=== PATIENT | male | born 1955 | race Two or more races ===

== ENCOUNTER → 2020-03-28 | Outpatient (REF) | payer MEDICARE ==
[2020-03-28 15:21] LABS: HEMATOCRIT 37.2 % (42.0-52.0); HEMOGLOBIN 12.3 g/dl (13.5-17.5); MEAN CORPUSCULAR HEMOGLOBIN 30.7 pg (27.0-33.0); MEAN CORPUSCULAR HGB CONC 33.1 g/dl (32.0-36.5); MEAN CORPUSCULAR VOLUME 92.8 fl (80.0-96.0); PLATELET COUNT, AUTOMATED 232 10^3/uL (150-450); RED BLOOD COUNT 4.01 10^6/uL (4.30-6.10); WHITE BLOOD COUNT 5.1 10^3/uL (4.0-10.0)
[2020-03-28 15:37] LABS: ALT/SGPT 23 U/L (12-78); BILIRUBIN,TOTAL 0.5 MG/DL (0.2-1.0); BLOOD UREA NITROGEN 18 MG/DL (7-18); CALCIUM LEVEL 9.4 MG/DL (8.8-10.2); CARBON DIOXIDE LEVEL 34 MEQ/L (21-32); CHLORIDE LEVEL 103 MEQ/L (98-107); CHOLESTEROL LEVEL 124 MG/DL (<200); CHOLESTEROL RISK RATIO 1.823 (<5); CREATININE FOR GFR 1.08 MG/DL (0.70-1.30); FREE T4 1.09 NG/DL (0.76-1.46); GLOMERULAR FILTRATION RATE > 60.0 (>49); GLUCOSE, FASTING 94 MG/DL (70-100); HDL CHOLESTEROL 68 MG/DL (>40); LDL CHOLESTEROL 45 MG/DL (<100); NON-HDL-C 56 MG/DL; POTASSIUM SERUM 3.4 MEQ/L (3.5-5.1); SODIUM LEVEL 139 MEQ/L (136-145); TOTAL PROTEIN 7.5 GM/DL (6.4-8.2); TRIGLYCERIDES LEVEL 54 MG/DL (<150)
[2020-03-28 15:39] LABS: HEMOGLOBIN A1c 6.5 %
[2020-03-28 17:21] LABS: CREATININE, URINE 44.4 MG/DL; MALB URINE SIEMENS < 5.0 MG/L; MAU/CREAT RATIO 11.2 MCG/MG (0.0-30.0)
== END ==
LOC: M SFHCPLAZ 12:32
PROVIDERS: ATTEND Physician Assistant
DX: I25.10 Atherosclerotic heart disease of native coronary artery without angina pectoris (principal); I11.9 Hypertensive heart disease without heart failure; E11.9 Type 2 diabetes mellitus without complications; E78.5 Hyperlipidemia, unspecified; Z12.5 Encounter for screening for malignant neoplasm of prostate; Z13.29 Encounter for screening for other suspected endocrine disorder
CPT/HCPCS: 36415; 80053; 80061; 82043; 83036; 84439; 84443; 85027; G0103

== ENCOUNTER → 2020-06-22 | Outpatient (CLI) | payer MEDICARE ==
[2020-06-22 18:37] LABS: BLOOD UREA NITROGEN 21 MG/DL (7-18); CARBON DIOXIDE LEVEL 33 MEQ/L (21-32); CHLORIDE LEVEL 104 MEQ/L (98-107); CREATININE FOR GFR 1.16 MG/DL (0.70-1.30); GLOMERULAR FILTRATION RATE > 60.0 (>49); GLUCOSE, FASTING 86 MG/DL (70-100); POTASSIUM SERUM 3.7 MEQ/L (3.5-5.1); SODIUM LEVEL 139 MEQ/L (136-145)
== END ==
LOC: M PLALAB 15:02
PROVIDERS: ATTEND Physician Assistant
DX: E11.9 Type 2 diabetes mellitus without complications (principal)

== ENCOUNTER → 2020-11-20 | Outpatient (REF) | payer MEDICARE ==
[2020-11-20 15:44] LABS: HEMATOCRIT 37.8 % (42.0-52.0); MEAN CORPUSCULAR HEMOGLOBIN 29.6 pg (27.0-33.0); MEAN CORPUSCULAR HGB CONC 31.7 g/dl (32.0-36.5); MEAN CORPUSCULAR VOLUME 93.3 fl (80.0-96.0); PLATELET COUNT, AUTOMATED 231 10^3/uL (150-450); RED BLOOD COUNT 4.05 10^6/uL (4.30-6.10); WHITE BLOOD COUNT 5.2 10^3/uL (4.0-10.0)
[2020-11-20 16:12] LABS: HEMOGLOBIN A1c 6.2 %
[2020-11-20 16:24] LABS: ALT/SGPT 25 U/L (12-78); BLOOD UREA NITROGEN 21 MG/DL (7-18); CALCIUM LEVEL 9.6 MG/DL (8.8-10.2); CARBON DIOXIDE LEVEL 32 MEQ/L (21-32); CHLORIDE LEVEL 104 MEQ/L (98-107); CREATININE FOR GFR 1.05 MG/DL (0.70-1.30); GLOMERULAR FILTRATION RATE > 60.0 (>49); GLUCOSE, FASTING 100 MG/DL (70-100); POTASSIUM SERUM 4.1 MEQ/L (3.5-5.1); SODIUM LEVEL 139 MEQ/L (136-145)
[2020-11-20 16:25] LABS: ALBUMIN 3.9 GM/DL (3.2-5.2); BILIRUBIN,TOTAL 0.6 MG/DL (0.2-1.0); TOTAL PROTEIN 7.4 GM/DL (6.4-8.2)
== END ==
LOC: M PLALAB 13:11
PROVIDERS: ATTEND Physician Assistant
DX: I11.9 Hypertensive heart disease without heart failure (principal); E11.9 Type 2 diabetes mellitus without complications

== ENCOUNTER → 2020-11-28 | Outpatient (REF) | payer MEDICARE ==
[2020-11-28 14:05] LABS: BASO # 0.1 10^3/uL (0.0-0.2); EOS # 0.2 10^3/uL (0.0-0.5); EOS % 3.2 % (0.0-3.0); HEMATOCRIT 38.6 % (42.0-52.0); HEMOGLOBIN 12.3 g/dl (13.5-17.5); LYMPH # 1.3 10^3/uL (1.5-5.0); LYMPH % 21.1 % (24.0-44.0); MEAN CORPUSCULAR HEMOGLOBIN 30.1 pg (27.0-33.0); MEAN CORPUSCULAR HGB CONC 31.9 g/dl (32.0-36.5); MEAN CORPUSCULAR VOLUME 94.4 fl (80.0-96.0); MONO # 0.8 10^3/uL (0.0-0.8); MONO % 12.8 % (0.0-5.0); NEUTROPHILS # 3.8 10^3/uL (1.5-8.5); NEUTROPHILS % 61.6 % (36.0-66.0); PLATELET COUNT, AUTOMATED 245 10^3/uL (150-450); RED BLOOD COUNT 4.09 10^6/uL (4.30-6.10); WHITE BLOOD COUNT 6.2 10^3/uL (4.0-10.0)
[2020-11-28 14:31] LABS: PERCENT SATURATION 26.8 % (19.7-50.0)
[2020-11-28 14:38] LABS: FOLATE 11.2 NG/ML
[2020-11-29 18:07] LABS: FREE LAMBDA LIGHT CHAINS SERUM 16.9 mg/L (5.7-26.3); KAPPA/LAMBDA RATIO SERUM 1.66 (0.26-1.65)
== END ==
LOC: M SFHCPLAZ 10:01
PROVIDERS: ATTEND Physician Assistant
DX: D64.9 Anemia, unspecified (principal)

== ENCOUNTER → 2020-12-28 | Outpatient (REF) | payer MEDICARE ==
[2020-12-28 16:01] LABS: TOTAL PROTEIN 7.3 GM/DL (6.4-8.2)
[2020-12-29 09:05] LABS: ALBUMIN 4.19 GM/DL (3.29-5.55); ALBUMIN % 57.4 % (55.8-66.1); ALPHA-1-GLOBULIN % 3.7 % (2.9-4.9); ALPHA-1-GLOBULINS 0.27 GM/DL (0.17-0.41)
[2020-12-29 09:06] LABS: ALPHA-2-GLOBULINS 0.93 GM/DL (0.42-0.99); ALPHA-2-GLOBULINS % 12.8 % (7.1-11.8); BETA-1-GLOBULINS 0.31 GM/DL (0.28-0.60); BETA-1-GLOBULINS % 4.2 % (4.7-7.2); BETA-2-GLOBULINS 0.32 GM/DL (0.19-0.55); BETA-2-GLOBULINS % 4.4 % (3.2-6.5); GAMMA GLOBULIN % 17.5 % (11.1-18.8); GAMMA GLOBULINS 1.28 GM/DL (0.65-1.58)
== END ==
LOC: M PLALAB 13:58
PROVIDERS: ATTEND Physician Assistant
DX: D64.9 Anemia, unspecified (principal)

== ENCOUNTER → 2021-10-04 | Outpatient (CLI) | payer MEDICARE ==
[2021-10-04 15:26] LABS: BASO # 0.1 10^3/uL (0.0-0.2); BASO % 0.7 % (0.0-1.0); EOS # 0.2 10^3/uL (0.0-0.5); EOS % 2.7 % (0.0-3.0); HEMOGLOBIN 12.4 g/dl (13.5-17.5); LYMPH # 1.1 10^3/uL (1.5-5.0); LYMPH % 15.2 % (24.0-44.0); MEAN CORPUSCULAR HEMOGLOBIN 30.1 pg (27.0-33.0); MEAN CORPUSCULAR HGB CONC 31.8 g/dl (32.0-36.5); MEAN CORPUSCULAR VOLUME 94.7 fl (80.0-96.0); MONO # 0.7 10^3/uL (0.0-0.8); NEUTROPHILS # 5.1 10^3/uL (1.5-8.5); NEUTROPHILS % 71.3 % (36.0-66.0); PLATELET COUNT, AUTOMATED 260 10^3/uL (150-450); RED BLOOD COUNT 4.12 10^6/uL (4.30-6.10); WHITE BLOOD COUNT 7.1 10^3/uL (4.0-10.0)
[2021-10-04 15:46] LABS: HEMOGLOBIN A1c 6.1 %
[2021-10-04 16:02] LABS: ALBUMIN 3.8 GM/DL (3.2-5.2); ALT/SGPT 28 U/L (12-78); BILIRUBIN,TOTAL 0.5 MG/DL (0.2-1.0); BLOOD UREA NITROGEN 25 MG/DL (7-18); CALCIUM LEVEL 9.7 MG/DL (8.8-10.2); CARBON DIOXIDE LEVEL 30 MEQ/L (21-32); CHLORIDE LEVEL 105 MEQ/L (98-107); CHOLESTEROL LEVEL 142 MG/DL (<200); CHOLESTEROL RISK RATIO 1.868 (<5); CREATININE FOR GFR 1.11 MG/DL (0.70-1.30); GLOMERULAR FILTRATION RATE > 60.0 (>49); GLUCOSE, FASTING 86 MG/DL (70-100); HDL CHOLESTEROL 76 MG/DL (>40); LDL CHOLESTEROL 55 MG/DL (<100); NON-HDL-C 66 MG/DL; POTASSIUM SERUM 4.1 MEQ/L (3.5-5.1); SODIUM LEVEL 141 MEQ/L (136-145); TOTAL PROTEIN 7.5 GM/DL (6.4-8.2); TRIGLYCERIDES LEVEL 53 MG/DL (<150)
== END ==
LOC: M PLALAB 12:16
PROVIDERS: ATTEND Physician Assistant
DX: E78.5 Hyperlipidemia, unspecified (principal); Z79.899 Other long term (current) drug therapy

== ENCOUNTER → 2022-05-29 | Outpatient (CLI) | payer MEDICARE ==
[2022-05-29 17:17] LABS: BASO # 0.1 10^3/uL (0.0-0.2); EOS # 0.2 10^3/uL (0.0-0.5); HEMATOCRIT 39.9 % (42.0-52.0); HEMOGLOBIN 12.7 g/dl (13.5-17.5); LYMPH # 1.2 10^3/uL (1.5-5.0); LYMPH % 19.5 % (24.0-44.0); MEAN CORPUSCULAR HEMOGLOBIN 30.8 pg (27.0-33.0); MEAN CORPUSCULAR HGB CONC 31.8 g/dl (32.0-36.5); MEAN CORPUSCULAR VOLUME 96.6 fl (80.0-96.0); MONO # 0.7 10^3/uL (0.0-0.8); NEUTROPHILS % 65.3 % (36.0-66.0); PLATELET COUNT, AUTOMATED 233 10^3/uL (150-450); RED BLOOD COUNT 4.13 10^6/uL (4.30-6.10); WHITE BLOOD COUNT 6.1 10^3/uL (4.0-10.0)
[2022-05-29 19:46] LABS: ALBUMIN 3.7 GM/DL (3.2-5.2); ALT/SGPT 24 U/L (12-78); BILIRUBIN,TOTAL 0.4 MG/DL (0.2-1.0); BLOOD UREA NITROGEN 22 MG/DL (7-18); CALCIUM LEVEL 9.4 MG/DL (8.8-10.2); CARBON DIOXIDE LEVEL 32 MEQ/L (21-32); CHLORIDE LEVEL 104 MEQ/L (98-107); CHOLESTEROL LEVEL 126 MG/DL (<200); CHOLESTEROL RISK RATIO 1.702 (<5); CREATININE FOR GFR 1.12 MG/DL (0.70-1.30); GLOMERULAR FILTRATION RATE > 60.0 (>49); GLUCOSE, FASTING 93 MG/DL (70-100); HDL CHOLESTEROL 74 MG/DL (>40); LDL CHOLESTEROL 37 MG/DL (<100); NON-HDL-C 52 MG/DL; POTASSIUM SERUM 3.6 MEQ/L (3.5-5.1); SODIUM LEVEL 141 MEQ/L (136-145); TOTAL PROTEIN 7.4 GM/DL (6.4-8.2); TRIGLYCERIDES LEVEL 76 MG/DL (<150)
[2022-05-29 22:58] LABS: HEMOGLOBIN A1c 6.2 %
== END ==
LOC: M PLALAB 15:42
PROVIDERS: ATTEND Nurse Practitioner Family
DX: E78.5 Hyperlipidemia, unspecified (principal); E11.9 Type 2 diabetes mellitus without complications

== ENCOUNTER → 2022-10-07 | Outpatient (CLI) | payer MEDICARE ==
[2022-10-07 17:47] LABS: BASO # 0.1 10^3/uL (0.0-0.2); BASO % 0.8 % (0.0-1.0); EOS # 0.4 10^3/uL (0.0-0.5); EOS % 4.2 % (0.0-3.0); HEMATOCRIT 43.3 % (42.0-52.0); HEMOGLOBIN 13.6 g/dl (13.5-17.5); LYMPH # 1.5 10^3/uL (1.5-5.0); LYMPH % 17.5 % (24.0-44.0); MEAN CORPUSCULAR HEMOGLOBIN 30.4 pg (27.0-33.0); MEAN CORPUSCULAR HGB CONC 31.4 g/dl (32.0-36.5); MEAN CORPUSCULAR VOLUME 96.7 fl (80.0-96.0); MONO % 11.1 % (2.0-8.0); NEUTROPHILS # 5.6 10^3/uL (1.5-8.5); NEUTROPHILS % 66.2 % (36.0-66.0); PLATELET COUNT, AUTOMATED 255 10^3/uL (150-450); RED BLOOD COUNT 4.48 10^6/uL (4.30-6.10); WHITE BLOOD COUNT 8.5 10^3/uL (4.0-10.0)
[2022-10-07 17:59] LABS: ALBUMIN 4.2 G/DL (3.2-5.2); ALKALINE PHOSPHATASE 87 U/L (46-116); ALT/SGPT 27 U/L (7.0-40); AST/SGOT 22 U/L (<34); BILIRUBIN,TOTAL 0.6 MG/DL (0.3-1.2); BLOOD UREA NITROGEN 23 MG/DL (9-23); CALCIUM LEVEL 9.8 MG/DL (8.3-10.6); CARBON DIOXIDE LEVEL 31 MMOL/L (20-31); CHLORIDE LEVEL 101 MMOL/L (98-107); CHOLESTEROL LEVEL 142 MG/DL (<200); CHOLESTEROL RISK RATIO 1.81 (<5); CREATININE FOR GFR 1.07 MG/DL (0.70-1.30); GLOMERULAR FILTRATION RATE > 60.0 (>49); GLUCOSE, FASTING 94 MG/DL (74-106); HDL CHOLESTEROL 78.2 MG/DL (>40); NON-HDL-C 64 MG/DL; POTASSIUM SERUM 3.8 MMOL/L (3.5-5.1); SODIUM LEVEL 141 MMOL/L (136-145); TOTAL PROTEIN 7.6 G/DL (5.7-8.2); TRIGLYCERIDES LEVEL 74 MG/DL (<150)
[2022-10-07 18:01] LABS: TOTAL 25(OH) VITAMIN D 25.6 NG/ML (20.0-100.0)
== END ==
LOC: M PLALAB 15:55
PROVIDERS: ATTEND Nurse Practitioner Family
DX: E11.9 Type 2 diabetes mellitus without complications (principal); I10 Essential (primary) hypertension; E78.5 Hyperlipidemia, unspecified; E55.9 Vitamin D deficiency, unspecified; Z79.899 Other long term (current) drug therapy

== ENCOUNTER → 2023-02-27 | Outpatient (CLI) | payer MEDICARE ==
[2023-02-27 16:33] LABS: BASO # 0.1 10^3/uL (0.0-0.2); BASO % 1.1 % (0.0-1.0); EOS # 0.3 10^3/uL (0.0-0.5); EOS % 5.7 % (0.0-3.0); HEMATOCRIT 38.7 % (42.0-52.0); HEMOGLOBIN 12.3 g/dl (13.5-17.5); LYMPH # 1.2 10^3/uL (1.5-5.0); LYMPH % 24.5 % (24.0-44.0); MEAN CORPUSCULAR HEMOGLOBIN 30.6 pg (27.0-33.0); MEAN CORPUSCULAR HGB CONC 31.8 g/dl (32.0-36.5); MEAN CORPUSCULAR VOLUME 96.3 fl (80.0-96.0); MONO # 0.7 10^3/uL (0.0-0.8); MONO % 14.5 % (2.0-8.0); NEUTROPHILS # 2.5 10^3/uL (1.5-8.5); PLATELET COUNT, AUTOMATED 215 10^3/uL (150-450); RED BLOOD COUNT 4.02 10^6/uL (4.30-6.10); WHITE BLOOD COUNT 4.7 10^3/uL (4.0-10.0)
[2023-02-27 17:01] LABS: CREATININE, URINE 63.7 MG/DL; MALB URINE SIEMENS < 3.0 MG/L; MAU/CREAT RATIO 4.7 MCG/MG (0.0-30.0)
[2023-02-27 17:06] LABS: ALKALINE PHOSPHATASE 81 U/L (46-116); ALT/SGPT 17 U/L (7.0-40); AST/SGOT 15 U/L (<34); BILIRUBIN,TOTAL 0.5 MG/DL (0.3-1.2); BLOOD UREA NITROGEN 17 MG/DL (9-23); CALCIUM LEVEL 9.6 MG/DL (8.3-10.6); CARBON DIOXIDE LEVEL 32 MMOL/L (20-31); CHLORIDE LEVEL 104 MMOL/L (98-107); CHOLESTEROL LEVEL 126 MG/DL (<200); CHOLESTEROL RISK RATIO 1.92 (<5); CREATININE FOR GFR 1.03 MG/DL (0.70-1.30); FREE T4 1.01 NG/DL (0.89-1.76); GLOMERULAR FILTRATION RATE > 60.0 (>49); GLUCOSE, FASTING 87 MG/DL (74-106); HDL CHOLESTEROL 65.3 MG/DL (>40); LDL CHOLESTEROL 48.7 MG/DL (<100); NON-HDL-C 60.7 MG/DL; POTASSIUM SERUM 3.9 MMOL/L (3.5-5.1); SODIUM LEVEL 139 MMOL/L (136-145); TOTAL PROTEIN 7.2 G/DL (5.7-8.2); TRIGLYCERIDES LEVEL 60 MG/DL (<150)
[2023-02-27 17:07] LABS: FERRITIN 80.4 NG/ML (10.5-307.3); THYROID STIMULATING HORMONE 4.976 uIU/ML (0.55-4.78); TOTAL 25(OH) VITAMIN D 26.9 NG/ML (20.0-100.0)
[2023-02-27 17:09] LABS: VITAMIN B12 LEVEL 378 PG/ML (211-911)
[2023-02-27 17:31] LABS: HEMOGLOBIN A1c 6.3 % (4.0-6.0)
== END ==
LOC: M PLALAB 13:51
PROVIDERS: ATTEND Nurse Practitioner Family
DX: E78.5 Hyperlipidemia, unspecified (principal); E11.9 Type 2 diabetes mellitus without complications; E55.9 Vitamin D deficiency, unspecified; D64.9 Anemia, unspecified

== ENCOUNTER 2023-06-02 23:22 | Emergency (ER) | payer MEDICARE ==
[~2023-06-02] VITALS: Ht 182.9 cm; Wt 104.5 kg
[2023-06-02 23:50] LABS: BASO # 0.1 10^3/uL (0.0-0.2); BASO % 0.5 % (0.0-1.0); EOS # 0.2 10^3/uL (0.0-0.5); EOS % 1.7 % (0.0-3.0); HEMATOCRIT 30.6 % (42.0-52.0); HEMOGLOBIN 9.9 g/dl (13.5-17.5); LYMPH # 1.4 10^3/uL (1.5-5.0); LYMPH % 12.6 % (24.0-44.0); MEAN CORPUSCULAR HEMOGLOBIN 30.6 pg (27.0-33.0); MEAN CORPUSCULAR HGB CONC 32.4 g/dl (32.0-36.5); MEAN CORPUSCULAR VOLUME 94.4 fl (80.0-96.0); MONO # 0.9 10^3/uL (0.0-0.8); MONO % 8.5 % (2.0-8.0); NEUTROPHILS # 8.4 10^3/uL (1.5-8.5); NEUTROPHILS % 76.3 % (36.0-66.0); PLATELET COUNT, AUTOMATED 216 10^3/uL (150-450); RED BLOOD COUNT 3.24 10^6/uL (4.30-6.10)
[2023-06-02] MEDS ORDERED: NS 1,000 ML IV ONE (23:55)
[2023-06-03 00:12] LABS: BLOOD UREA NITROGEN 28 MG/DL (9-23); CALCIUM LEVEL 8.5 MG/DL (8.3-10.6); CARBON DIOXIDE LEVEL 26 MMOL/L (20-31); CHLORIDE LEVEL 107 MMOL/L (98-107); CREATININE FOR GFR 1.22 MG/DL (0.70-1.30); GLOMERULAR FILTRATION RATE > 60.0 (>42); GLUCOSE, FASTING 200 MG/DL (74-106); POTASSIUM SERUM 3.7 MMOL/L (3.5-5.1); SODIUM LEVEL 142 MMOL/L (136-145)
[2023-06-03 00:16] LABS: INR 1.01; PROTHROMBIN TIME 13.5 SECONDS (12.5-14.5)
[2023-06-03 00:17] LABS: PARTIAL THROMBOPLASTIN TIME 26.3 SECONDS (24.8-34.2)
[2023-06-03] MEDS ORDERED: NS 3,140 ML in IV 1 EA IV ONE (01:00)
[2023-06-03 04:04] LABS: BASO % 0.4 % (0.0-1.0); EOS % 0.2 % (0.0-3.0); HEMATOCRIT 27.9 % (42.0-52.0); LYMPH # 0.7 10^3/uL (1.5-5.0); LYMPH % 7.7 % (24.0-44.0); MEAN CORPUSCULAR HEMOGLOBIN 30.8 pg (27.0-33.0); MEAN CORPUSCULAR HGB CONC 32.3 g/dl (32.0-36.5); MEAN CORPUSCULAR VOLUME 95.5 fl (80.0-96.0); MONO # 0.8 10^3/uL (0.0-0.8); MONO % 8.1 % (2.0-8.0); NEUTROPHILS % 83.2 % (36.0-66.0); PLATELET COUNT, AUTOMATED 178 10^3/uL (150-450); RED BLOOD COUNT 2.92 10^6/uL (4.30-6.10); WHITE BLOOD COUNT 9.7 10^3/uL (4.0-10.0)
[2023-06-03 09:14] VITALS: BP 107/56; TEMP 99.1; O2SAT 100
== END 2023-06-03 08:58 | disposition home or self-care (01) ==
LOC: EDBD 23:22 → M ED 23:22
DX: I83.811 Varicose veins of right lower extremity with pain (principal); I25.10 Atherosclerotic heart disease of native coronary artery without angina pectoris; I12.9 Hypertensive chronic kidney disease with stage 1 through stage 4 chronic kidney disease, or unspecified chronic kidney disease; N18.9 Chronic kidney disease, unspecified

== ENCOUNTER → 2023-06-17 | Outpatient (CLI) | payer MEDICARE ==
[~2023-06-17] MED LIST: ASPI-161 PO; CETI-25 PO; CLOP75TA2; CLOP75TA2 PO; LOSA100T5; LOSA100T5 PO; METF-838; METF-838 PO; MUPI2OI; MUPI2OI EXT; ROSU40TA4; ROSU40TA4 PO
[2023-06-17 14:05] LABS: BASO # 0.1 10^3/uL (0.0-0.2); EOS # 0.3 10^3/uL (0.0-0.5); EOS % 5.2 % (0.0-3.0); HEMATOCRIT 28.2 % (42.0-52.0); HEMOGLOBIN 8.8 g/dl (13.5-17.5); LYMPH # 1.8 10^3/uL (1.5-5.0); LYMPH % 30.1 % (24.0-44.0); MEAN CORPUSCULAR HEMOGLOBIN 30.9 pg (27.0-33.0); MEAN CORPUSCULAR HGB CONC 31.2 g/dl (32.0-36.5); MEAN CORPUSCULAR VOLUME 98.9 fl (80.0-96.0); MONO # 0.8 10^3/uL (0.0-0.8); NEUTROPHILS % 50.5 % (36.0-66.0); PLATELET COUNT, AUTOMATED 297 10^3/uL (150-450); RED BLOOD COUNT 2.85 10^6/uL (4.30-6.10)
== END ==
LOC: M PLALAB 09:03
PROVIDERS: ATTEND Nurse Practitioner Family
DX: I83.891 Varicose veins of right lower extremity with other complications (principal)

== ENCOUNTER 2023-06-18 02:40 | Inpatient (IN) | payer MEDICARE ==
[~2023-06-18] VITALS: Ht 182.9 cm; Wt 108.6 kg
[2023-06-18] VITALS (16 sets, daily range): BP systolic 100–133; BP diastolic 51–64; TEMP 98.4–99.3; O2SAT 95–100
[2023-06-18] MEDS ORDERED: METF-838 (03:00)
[2023-06-18] MEDS ORDERED: CLOP75TA2 (03:00)
[2023-06-18] MEDS ORDERED: ROSU40TA4 (03:00)
[2023-06-18] MEDS ORDERED: MUPI2OI (03:00)
[2023-06-18] MEDS ORDERED: LOSA100T5 (03:00)
[2023-06-18] MEDS ORDERED: BOOSTRIX VACCINE (TETANUS/DIPHTH/ACEL. PERTUSSIS) 0.5ML SYR IM.IMMUN ONE (03:20)
[2023-06-18] MEDS ORDERED: LIDOCAINE W/EPINEPHRINE 1% 20ML VIAL SC ONE (03:20)
[2023-06-18 03:30] LABS: BASO # 0.1 10^3/uL (0.0-0.2); EOS # 0.3 10^3/uL (0.0-0.5); EOS % 4.9 % (0.0-3.0); HEMATOCRIT 23.2 % (42.0-52.0); HEMOGLOBIN 7.4 g/dl (13.5-17.5); LYMPH # 1.4 10^3/uL (1.5-5.0); LYMPH % 27.5 % (24.0-44.0); MEAN CORPUSCULAR HEMOGLOBIN 31.2 pg (27.0-33.0); MEAN CORPUSCULAR HGB CONC 31.9 g/dl (32.0-36.5); MEAN CORPUSCULAR VOLUME 97.9 fl (80.0-96.0); MONO # 0.6 10^3/uL (0.0-0.8); MONO % 11.3 % (2.0-8.0); NEUTROPHILS # 2.8 10^3/uL (1.5-8.5); NEUTROPHILS % 55.1 % (36.0-66.0); PLATELET COUNT, AUTOMATED 250 10^3/uL (150-450); RED BLOOD COUNT 2.37 10^6/uL (4.30-6.10); WHITE BLOOD COUNT 5.1 10^3/uL (4.0-10.0)
[2023-06-18 03:35] LABS: ETHYL ALCOHOL (ETHANOL) < 0.003 % (0.000-0.010)
[2023-06-18 03:36] LABS: BLOOD UREA NITROGEN 26 MG/DL (9-23); CALCIUM LEVEL 8.1 MG/DL (8.3-10.6); CARBON DIOXIDE LEVEL 27 MMOL/L (20-31); CHLORIDE LEVEL 106 MMOL/L (98-107); CK-MB VALUE MASS < 1.0 NG/ML (<3.6); CPK CREATINE PHOSPHOKINASE 80 U/L (46-171); CREATININE FOR GFR 1.07 MG/DL (0.70-1.30); GLOMERULAR FILTRATION RATE > 60.0 (>42); GLUCOSE, FASTING 178 MG/DL (74-106); INR 1.1; MAGNESIUM LEVEL 1.6 MG/DL (1.8-2.4); MB/CK RELATIVE INDEX 1.25 (< OR =4); POTASSIUM SERUM 3.7 MMOL/L (3.5-5.1); PROTHROMBIN TIME 13.9 SECONDS (12.5-14.5); SODIUM LEVEL 143 MMOL/L (136-145)
[2023-06-18 03:37] LABS: PARTIAL THROMBOPLASTIN TIME 28.8 SECONDS (24.8-34.2)
[2023-06-18 03:38] LABS: THYROID STIMULATING HORMONE 6.584 uIU/ML (0.55-4.78)
[2023-06-18] MEDS ORDERED: MAG SULF 1GM/100ML (MAG RUN) 1 GM in IV 1 EA IV ONE (04:10)
[2023-06-18 04:54] LABS: CK-MB VALUE MASS < 1.0 NG/ML (<3.6)
[2023-06-18 04:55] LABS: CPK CREATINE PHOSPHOKINASE 82 U/L (46-171); MB/CK RELATIVE INDEX 1.21 (< OR =4)
[2023-06-18 05:02] LABS: RSV AMPLIFICATION NEGATIVE (NEGATIVE)
[2023-06-18] MEDS ORDERED: CLOP75TA2 PO (06:40)
[2023-06-18] MEDS ORDERED: LOSA100T5 PO (06:40)
[2023-06-18] MEDS ORDERED: ASPI-161 PO (06:41)
[2023-06-18] MEDS ORDERED: METF-838 PO (06:41)
[2023-06-18] MEDS ORDERED: MUPI2OI EXT (06:41)
[2023-06-18] MEDS ORDERED: ROSU40TA4 PO (06:41)
[2023-06-18] MEDS ORDERED: CETI-25 PO (06:41)
[2023-06-18] MEDS ORDERED: GLUCOSE 4GM CHEW TABLET PO PRN (06:45)
[2023-06-18] MEDS ORDERED: DEXTROSE 50% 50ML SYRINGE IV PRN (06:45)
[2023-06-18] MEDS ORDERED: GLUCAGON INJ 1MG VIAL SC PRN (06:45)
[2023-06-18] MEDS ORDERED: HOME MED LIST COMPLETE! XX SCH (06:45)
[2023-06-18] MEDS ORDERED: ACETAMINOPHEN TAB 650MG DOSE (2X325MG) PO PRN (06:45)
[2023-06-18] MEDS ORDERED: NS 500 ML IV ONE (07:05)
[2023-06-18 07:25] LABS: FREE T4 1.01 NG/DL (0.89-1.76)
[2023-06-18 07:47] LABS: HEMATOCRIT 22.5 % (42.0-52.0); HEMOGLOBIN 7.2 g/dl (13.5-17.5)
[2023-06-18] MEDS ORDERED: CLOPIDOGREL 75 MG TAB PO SCH (09:00)
[2023-06-18] MEDS: INSULIN LISPRO (NovoLOG) PER UNIT SC SCH ×4 (10:20→20:43)
[2023-06-18] MEDS: LOSARTAN 50MG TABLET PO SCH (12:13)
[2023-06-18] MEDS: ASPIRIN 81MG ENTERIC TABLET PO SCH (12:35)
[2023-06-18 16:42] LABS: HEMATOCRIT 22.1 % (42.0-52.0)
[2023-06-19] VITALS (9 sets, daily range): BP systolic 103–140; BP diastolic 54–67; TEMP 97.7–99.3; O2SAT 96–100
[2023-06-19 04:58] LABS: HEMATOCRIT 24.5 % (42.0-52.0); HEMOGLOBIN 8.1 g/dl (13.5-17.5); MEAN CORPUSCULAR HEMOGLOBIN 30.6 pg (27.0-33.0); MEAN CORPUSCULAR HGB CONC 33.1 g/dl (32.0-36.5); MEAN CORPUSCULAR VOLUME 92.5 fl (80.0-96.0); PLATELET COUNT, AUTOMATED 205 10^3/uL (150-450); RED BLOOD COUNT 2.65 10^6/uL (4.30-6.10); WHITE BLOOD COUNT 7.5 10^3/uL (4.0-10.0)
[2023-06-19 05:23] LABS: BLOOD UREA NITROGEN 23 MG/DL (9-23); CALCIUM LEVEL 8.4 MG/DL (8.3-10.6); CARBON DIOXIDE LEVEL 27 MMOL/L (20-31); CHLORIDE LEVEL 110 MMOL/L (98-107); CREATININE FOR GFR 0.98 MG/DL (0.70-1.30); GLOMERULAR FILTRATION RATE > 60.0 (>42); GLUCOSE, FASTING 120 MG/DL (74-106); POTASSIUM SERUM 3.6 MMOL/L (3.5-5.1); SODIUM LEVEL 144 MMOL/L (136-145)
[2023-06-19 07:55] LABS: LDH LACTATE DEHYDROGENASE 121 U/L (120-246); MAGNESIUM LEVEL 1.8 MG/DL (1.8-2.4)
[2023-06-19 07:56] LABS: IRON (FE) 196 UG/DL (65-175); PERCENT SATURATION 79.4 % (19.7-50.0); TOTAL IRON BINDING CAPACITY 247 UG/DL (250-425)
[2023-06-19 07:58] LABS: FOLATE 9.6 NG/ML (>5.4)
[2023-06-19 07:59] LABS: FERRITIN 28.5 NG/ML (10.5-307.3); THYROID STIMULATING HORMONE 2.302 uIU/ML (0.55-4.78); VITAMIN B12 LEVEL 246 PG/ML (211-911)
[2023-06-19] MEDS: INSULIN LISPRO (NovoLOG) PER UNIT SC SCH ×4 (08:53→20:00)
[2023-06-19] MEDS: LOSARTAN 50MG TABLET PO SCH (08:54)
[2023-06-19] MEDS: ASPIRIN 81MG ENTERIC TABLET PO SCH (09:08)
[2023-06-19 14:12] LABS: HEMATOCRIT 26.3 % (42.0-52.0); HEMOGLOBIN 8.7 g/dl (13.5-17.5)
[2023-06-19 22:06] LABS: HEMATOCRIT 26.8 % (42.0-52.0); HEMOGLOBIN 8.8 g/dl (13.5-17.5)
[2023-06-20 04:00] VITALS: BP 147/65; TEMP 97.8; O2SAT 99
[2023-06-20 05:02] LABS: HEMATOCRIT 24.3 % (42.0-52.0); MEAN CORPUSCULAR HEMOGLOBIN 31.1 pg (27.0-33.0); MEAN CORPUSCULAR HGB CONC 32.9 g/dl (32.0-36.5); MEAN CORPUSCULAR VOLUME 94.6 fl (80.0-96.0); PLATELET COUNT, AUTOMATED 194 10^3/uL (150-450); RED BLOOD COUNT 2.57 10^6/uL (4.30-6.10); WHITE BLOOD COUNT 6.2 10^3/uL (4.0-10.0)
[2023-06-20 05:27] LABS: BLOOD UREA NITROGEN 21 MG/DL (9-23); CALCIUM LEVEL 8.2 MG/DL (8.3-10.6); CARBON DIOXIDE LEVEL 28 MMOL/L (20-31); CHLORIDE LEVEL 109 MMOL/L (98-107); CREATININE FOR GFR 0.94 MG/DL (0.70-1.30); GLOMERULAR FILTRATION RATE > 60.0 (>42); GLUCOSE, FASTING 109 MG/DL (74-106); POTASSIUM SERUM 3.5 MMOL/L (3.5-5.1); SODIUM LEVEL 142 MMOL/L (136-145)
[2023-06-20 08:00] VITALS: BP 128/60; TEMP 97.5; O2SAT 99
[2023-06-20] MEDS: ASPIRIN 81MG ENTERIC TABLET PO SCH (09:31)
[2023-06-20] MEDS: LOSARTAN 50MG TABLET PO SCH (09:32)
[2023-06-20] MEDS: INSULIN LISPRO (NovoLOG) PER UNIT SC SCH ×4 (09:36→20:19)
[2023-06-20 12:00] VITALS: BP 109/58; TEMP 97.5; O2SAT 98
[2023-06-20 16:00] VITALS: BP 106/54; TEMP 98.1; O2SAT 97
[2023-06-20 18:24] LABS: HEMATOCRIT 27.4 % (42.0-52.0); HEMOGLOBIN 8.8 g/dl (13.5-17.5)
[2023-06-20 20:00] VITALS: BP 110/56; TEMP 98.3; O2SAT 100
[2023-06-21] VITALS: BP 131/62; TEMP 98.3; O2SAT 99
[2023-06-21 04:00] VITALS: BP 134/61; TEMP 97.8; O2SAT 98
[2023-06-21 04:50] LABS: HEMATOCRIT 25.7 % (42.0-52.0); HEMOGLOBIN 8.3 g/dl (13.5-17.5); MEAN CORPUSCULAR HEMOGLOBIN 30.7 pg (27.0-33.0); MEAN CORPUSCULAR HGB CONC 32.3 g/dl (32.0-36.5); MEAN CORPUSCULAR VOLUME 95.2 fl (80.0-96.0); PLATELET COUNT, AUTOMATED 206 10^3/uL (150-450); WHITE BLOOD COUNT 5.5 10^3/uL (4.0-10.0)
[2023-06-21 05:12] LABS: BLOOD UREA NITROGEN 16 MG/DL (9-23); CALCIUM LEVEL 8.8 MG/DL (8.3-10.6); CARBON DIOXIDE LEVEL 29 MMOL/L (20-31); CHLORIDE LEVEL 107 MMOL/L (98-107); CREATININE FOR GFR 0.93 MG/DL (0.70-1.30); GLOMERULAR FILTRATION RATE > 60.0 (>42); GLUCOSE, FASTING 99 MG/DL (74-106); POTASSIUM SERUM 3.7 MMOL/L (3.5-5.1); SODIUM LEVEL 142 MMOL/L (136-145)
[2023-06-21] MEDS: INSULIN LISPRO (NovoLOG) PER UNIT SC SCH ×4 (07:30→19:47)
[2023-06-21 08:00] VITALS: BP 133/60; TEMP 97.8; O2SAT 99
[2023-06-21] MEDS: ASPIRIN 81MG ENTERIC TABLET PO SCH (08:26)
[2023-06-21] MEDS: LOSARTAN 50MG TABLET PO SCH (09:00)
[2023-06-21 12:00] VITALS: BP 122/57; TEMP 97.8; O2SAT 99
[2023-06-21] MEDS: PANTOPRAZOLE 40MG TAB (PROTONIX) PO SCH (13:14)
[2023-06-21 16:02] VITALS: BP 136/68; TEMP 97.7; O2SAT 100
[2023-06-21 20:00] VITALS: BP 127/62; TEMP 98.4; O2SAT 100
[2023-06-22 06:00] VITALS: BP 122/60; TEMP 98.4; O2SAT 97
[2023-06-22] MEDS: INSULIN LISPRO (NovoLOG) PER UNIT SC SCH ×4 (07:30→20:56)
[2023-06-22] MEDS: PANTOPRAZOLE 40MG TAB (PROTONIX) PO SCH (08:38)
[2023-06-22] MEDS: ASPIRIN 81MG ENTERIC TABLET PO SCH (08:39)
[2023-06-22 08:46] VITALS: BP 122/60
[2023-06-22] MEDS: LOSARTAN 50MG TABLET PO SCH (08:46)
[2023-06-22 14:00] VITALS: BP 116/54; TEMP 98.7; O2SAT 98
[2023-06-22 20:30] VITALS: BP 113/52; TEMP 97.7; O2SAT 100
[2023-06-23 05:19] VITALS: BP 137/70; TEMP 97.7; O2SAT 99
[2023-06-23] MEDS: INSULIN LISPRO (NovoLOG) PER UNIT SC SCH ×4 (07:30→20:35)
[2023-06-23] MEDS ORDERED: SENNA 8.6 MG TAB (SENOKOT) PO PRN (07:40)
[2023-06-23] MEDS ORDERED: MIRALAX *UNIT DOSE* 17GM PACKET PO PRN (07:40)
[2023-06-23] MEDS: LOSARTAN 50MG TABLET PO SCH (08:28)
[2023-06-23] MEDS: ASPIRIN 81MG ENTERIC TABLET PO SCH (08:28)
[2023-06-23] MEDS: PANTOPRAZOLE 40MG TAB (PROTONIX) PO SCH (08:28)
[2023-06-23 15:00] VITALS: BP 136/68; TEMP 97.5; O2SAT 99
[2023-06-23 20:45] VITALS: BP 131/63; TEMP 97.5; O2SAT 100
[2023-06-24] VITALS (8 sets, daily range): BP systolic 119–155; BP diastolic 55–80; TEMP 97.7–98.2; O2SAT 95–100
[2023-06-24] MEDS: INSULIN LISPRO (NovoLOG) PER UNIT SC SCH ×4 (07:30→19:52)
[2023-06-24] MEDS: LOSARTAN 50MG TABLET PO SCH (08:30)
[2023-06-24] MEDS: PANTOPRAZOLE 40MG TAB (PROTONIX) PO SCH (08:30)
[2023-06-24] MEDS: ASPIRIN 81MG ENTERIC TABLET PO SCH (08:30)
[2023-06-24 08:34] LABS: HEMATOCRIT 28.8 % (42.0-52.0); HEMOGLOBIN 9.2 g/dl (13.5-17.5); MEAN CORPUSCULAR HEMOGLOBIN 31.1 pg (27.0-33.0); MEAN CORPUSCULAR HGB CONC 31.9 g/dl (32.0-36.5); MEAN CORPUSCULAR VOLUME 97.3 fl (80.0-96.0); PLATELET COUNT, AUTOMATED 237 10^3/uL (150-450); RED BLOOD COUNT 2.96 10^6/uL (4.30-6.10); WHITE BLOOD COUNT 4.9 10^3/uL (4.0-10.0)
[2023-06-24] MEDS ORDERED: LIDOCAINE W/EPINEPHRINE 1% 20ML VIAL As Ordered ONE ×2 (14:54→15:02)
[2023-06-24] MEDS ORDERED: MIDAZOLAM INJ 2MG/2ML VIAL As Ordered ONE (14:54)
[2023-06-24] MEDS ORDERED: fentaNYL 100 MCG/2 ML INJECTION As Ordered ONE ×2 (14:54→16:16)
[2023-06-24] MEDS ORDERED: SODIUM BICARBONATE 8.4% INJ 50MEQ 50ML VIAL As Ordered ONE (14:54)
[2023-06-24] MEDS ORDERED: LIDOCAINE 1% MDV 20ML VIAL As Ordered ONE (14:55)
[2023-06-25 04:35] VITALS: BP 120/55; TEMP 98.2; O2SAT 97
[2023-06-25] MEDS: INSULIN LISPRO (NovoLOG) PER UNIT SC SCH ×2 (07:22→11:57)
[2023-06-25] MEDS: PANTOPRAZOLE 40MG TAB (PROTONIX) PO SCH (08:01)
[2023-06-25] MEDS: LOSARTAN 50MG TABLET PO SCH (08:01)
[2023-06-25] MEDS: ASPIRIN 81MG ENTERIC TABLET PO SCH (08:01)
== END 2023-06-25 15:04 | disposition home or self-care (01) | DRG 983 ==
LOC: M ED 02:40 → EDBD 02:40 → M ED INP 06:42 → ENRESERV 08:23 → M PCU 10:02 → M MSPAV 06-21 15:54
PROVIDERS: ADMIT Internal Medicine; ATTEND Internal Medicine
PROC: 30233N1 Transfusion of Nonautologous Red Blood Cells into Peripheral Vein, Percutaneous Approach (ICD-10-PCS; 2023-06-18)
PROC: 06LY3ZZ Occlusion of Lower Vein, Percutaneous Approach (ICD-10-PCS; 2023-06-24)
PROC: 065P3ZZ Destruction of Right Saphenous Vein, Percutaneous Approach (ICD-10-PCS; principal; 2023-06-24 12:00)
DX: D62 Acute posthemorrhagic anemia (principal); I83.891 Varicose veins of right lower extremity with other complications; E11.9 Type 2 diabetes mellitus without complications; I25.10 Atherosclerotic heart disease of native coronary artery without angina pectoris; I10 Essential (primary) hypertension; S01.81XA Laceration without foreign body of other part of head, initial encounter; W18.30XA Fall on same level, unspecified, initial encounter; R55 Syncope and collapse; Y92.018 Other place in single-family (private) house as the place of occurrence of the external cause; Y93.89 Activity, other specified; Y99.8 Other external cause status; Z79.82 Long term (current) use of aspirin; Z79.02 Long term (current) use of antithrombotics/antiplatelets; Z79.899 Other long term (current) drug therapy; Z95.5 Presence of coronary angioplasty implant and graft

== ENCOUNTER → 2023-06-27 | Outpatient (CLI) | payer MEDICARE | LOC: M RAD 10:57 | PROVIDERS: ATTEND Surgery Vascular Surgery | DX: Z98.890 Other specified postprocedural states (principal) ==

== ENCOUNTER → 2023-07-02 | Outpatient (CLI) | payer MEDICARE ==
[2023-07-02 14:00] LABS: PERCENT SATURATION 14.6 % (19.7-50.0)
[2023-07-02 14:04] LABS: BASO # 0.1 10^3/uL (0.0-0.2); BASO % 1.2 % (0.0-1.0); EOS # 0.3 10^3/uL (0.0-0.5); EOS % 5.6 % (0.0-3.0); HEMATOCRIT 31.7 % (42.0-52.0); HEMOGLOBIN 9.8 g/dl (13.5-17.5); LYMPH # 1.5 10^3/uL (1.5-5.0); LYMPH % 29.4 % (24.0-44.0); MEAN CORPUSCULAR HEMOGLOBIN 30.7 pg (27.0-33.0); MEAN CORPUSCULAR HGB CONC 30.9 g/dl (32.0-36.5); MEAN CORPUSCULAR VOLUME 99.4 fl (80.0-96.0); MONO # 0.7 10^3/uL (0.0-0.8); MONO % 13.7 % (2.0-8.0); NEUTROPHILS # 2.5 10^3/uL (1.5-8.5); NEUTROPHILS % 49.9 % (36.0-66.0); PLATELET COUNT, AUTOMATED 272 10^3/uL (150-450); RED BLOOD COUNT 3.19 10^6/uL (4.30-6.10)
== END ==
LOC: M PLALAB 09:29
PROVIDERS: ATTEND Nurse Practitioner Family
DX: D62 Acute posthemorrhagic anemia (principal)

== ENCOUNTER → 2024-05-19 | Outpatient (CLI) | payer MEDICARE ==
[~2024-05-19] MED LIST changes: -ASPI-161 PO; +ASPI-615 PO; -ROSU40TA4; -ROSU40TA4 PO; +ROSU40TA63; +ROSU40TA63 PO
[2024-05-19 18:14] LABS: BASO # 0.1 10^3/uL (0.0-0.2); EOS # 0.3 10^3/uL (0.0-0.5); EOS % 4.1 % (0.0-3.0); HEMATOCRIT 40.1 % (42.0-52.0); HEMOGLOBIN 13.2 g/dl (13.5-17.5); LYMPH # 1.2 10^3/uL (1.5-5.0); LYMPH % 20.3 % (24.0-44.0); MEAN CORPUSCULAR HEMOGLOBIN 30.6 pg (27.0-33.0); MEAN CORPUSCULAR HGB CONC 32.9 g/dl (32.0-36.5); MONO # 0.8 10^3/uL (0.0-0.8); MONO % 13.3 % (2.0-8.0); NEUTROPHILS # 3.7 10^3/uL (1.5-8.5); PLATELET COUNT, AUTOMATED 232 10^3/uL (150-450); RED BLOOD COUNT 4.31 10^6/uL (4.30-6.10); WHITE BLOOD COUNT 6.1 10^3/uL (4.0-10.0)
[2024-05-19 18:36] LABS: HEMOGLOBIN A1c 6.1 % (4.0-6.0)
[2024-05-19 18:45] LABS: ALBUMIN 3.8 G/DL (3.2-5.2); ALKALINE PHOSPHATASE 89 U/L (46-116); ALT/SGPT 10 U/L (7.0-40); AST/SGOT < 8 U/L (<34); BILIRUBIN,TOTAL 0.6 MG/DL (0.3-1.2); BLOOD UREA NITROGEN 17 MG/DL (9-23); CALCIUM LEVEL 9.5 MG/DL (8.3-10.6); CARBON DIOXIDE LEVEL 32 MMOL/L (20-31); CHLORIDE LEVEL 105 MMOL/L (98-107); CHOLESTEROL LEVEL 136 MG/DL (<200); CHOLESTEROL RISK RATIO 2.21 (<5); CREATININE FOR GFR 1.04 MG/DL (0.70-1.30); GLOMERULAR FILTRATION RATE > 60.0 (>42); GLUCOSE, FASTING 96 MG/DL (74-106); HDL CHOLESTEROL 61.4 MG/DL (>40); LDL CHOLESTEROL 62.6 MG/DL (<100); NON-HDL-C 74.6 MG/DL; POTASSIUM SERUM 3.8 MMOL/L (3.5-5.1); SODIUM LEVEL 139 MMOL/L (136-145); TOTAL 25(OH) VITAMIN D 24.4 NG/ML (20.0-100.0); TRIGLYCERIDES LEVEL 60 MG/DL (<150)
[2024-05-19 18:46] LABS: VITAMIN B12 LEVEL 438 PG/ML (211-911)
== END ==
LOC: M PLALAB 16:03
PROVIDERS: ATTEND Nurse Practitioner Family
DX: E11.9 Type 2 diabetes mellitus without complications (principal); E53.8 Deficiency of other specified B group vitamins; E55.9 Vitamin D deficiency, unspecified; I10 Essential (primary) hypertension; E78.5 Hyperlipidemia, unspecified

== ENCOUNTER → 2025-01-21 | Outpatient (CLI) | payer MEDICARE ==
[~2025-01-21] MED LIST changes: -ROSU40TA63; -ROSU40TA63 PO; +ROSU40TA81; +ROSU40TA81 PO
[2025-01-21 19:01] LABS: BASO # 0.1 10^3/uL (0.0-0.2); EOS # 0.3 10^3/uL (0.0-0.5); EOS % 5.2 % (0.0-3.0); HEMATOCRIT 41.1 % (42.0-52.0); HEMOGLOBIN 13.3 g/dl (13.5-17.5); LYMPH # 1.5 10^3/uL (1.5-5.0); LYMPH % 24.7 % (24.0-44.0); MEAN CORPUSCULAR HGB CONC 32.4 g/dl (32.0-36.5); MEAN CORPUSCULAR VOLUME 92.8 fl (80.0-96.0); MONO # 0.9 10^3/uL (0.0-0.8); MONO % 14.5 % (2.0-8.0); NEUTROPHILS # 3.2 10^3/uL (1.5-8.5); NEUTROPHILS % 54.3 % (36.0-66.0); PLATELET COUNT, AUTOMATED 271 10^3/uL (150-450); RED BLOOD COUNT 4.43 10^6/uL (4.30-6.10)
[2025-01-21 19:31] LABS: PSA SCREENING 5.01 NG/ML (< 4.00)
[2025-01-21 19:34] LABS: ALBUMIN 3.8 G/DL (3.2-5.2); ALKALINE PHOSPHATASE 93 U/L (40-129); ALT/SGPT 10 U/L (7.0-40); AST/SGOT 10 U/L (<34); BILIRUBIN,TOTAL 0.5 MG/DL (0.3-1.2); BLOOD UREA NITROGEN 17 MG/DL (9-23); CALCIUM LEVEL 9.5 MG/DL (8.3-10.6); CARBON DIOXIDE LEVEL 32 MMOL/L (20-31); CHLORIDE LEVEL 103 MMOL/L (98-107); CHOLESTEROL LEVEL 135 MG/DL (<200); CHOLESTEROL RISK RATIO 2.23 (<5); CREATININE FOR GFR 0.95 MG/DL (0.70-1.30); GLOMERULAR FILTRATION RATE > 60.0 (>42); GLUCOSE, FASTING 98 MG/DL (74-106); HDL CHOLESTEROL 60.5 MG/DL (>40); IRON (FE) 79 UG/DL (65-175); LDL CHOLESTEROL 63.7 MG/DL (<100); NON-HDL-C 74.5 MG/DL; PERCENT SATURATION 29.3 % (19.7-50.0); POTASSIUM SERUM 3.9 MMOL/L (3.5-5.1); SODIUM LEVEL 141 MMOL/L (136-145); TOTAL IRON BINDING CAPACITY 270 UG/DL (250-425); TOTAL PROTEIN 7.4 G/DL (5.7-8.2); TRIGLYCERIDES LEVEL 54 MG/DL (<150)
[2025-01-21 19:35] LABS: VITAMIN B12 LEVEL 396 PG/ML (211-911)
[2025-01-21 19:50] LABS: HEMOGLOBIN A1c 6.2 % (4.0-6.0)
== END ==
LOC: M PLALAB 14:37
PROVIDERS: ATTEND Nurse Practitioner Family
DX: D64.9 Anemia, unspecified (principal); Z12.5 Encounter for screening for malignant neoplasm of prostate; E53.8 Deficiency of other specified B group vitamins; E55.9 Vitamin D deficiency, unspecified; I10 Essential (primary) hypertension; E78.5 Hyperlipidemia, unspecified; E11.9 Type 2 diabetes mellitus without complications
CPT/HCPCS: 36415; 80053; 80061; 82607; 82652; 83036; 83550; 85025; G0103

== ENCOUNTER → 2025-02-03 | Outpatient (CLI) | payer MEDICARE ==
[2025-02-07 14:17] LABS: PSA FREE 0.6 ng/mL; PSA TOTAL 5.1 ng/mL (< OR = 4.0)
== END ==
LOC: M PLALAB 13:18
PROVIDERS: ATTEND Nurse Practitioner Family
DX: R97.20 Elevated prostate specific antigen [PSA] (principal)

== ENCOUNTER → 2025-02-28 | Outpatient (CLI) | payer MEDICARE | LOC: M RAD 12:37 | PROVIDERS: ATTEND Nurse Practitioner Family | DX: R35.0 Frequency of micturition (principal); R97.20 Elevated prostate specific antigen [PSA] ==